=== PATIENT | female | born 1940 | race Caucasian/White ===

== ENCOUNTER 2022-03-17 14:04 | Inpatient (IN) | payer MEDICARE, OTHER ==
[2022-03-17] MEDS ORDERED: Metoclopramide 10 MG/2 ML SDV IVPUSH ONE (14:47)
[2022-03-17] MEDS ORDERED: Dextrose 5%-Lactated Ringers 1,000 ML IV SCH (16:00)
[2022-03-17] MEDS: Potassium Chloride 10 MEQ in Premix Bag 1 BAG IV SCH ×4 (16:27→20:05)
[2022-03-17] MEDS ORDERED: Iopamidol 612 MG/ML 100 ML Bottle IVPUSH ONE (16:56)
[2022-03-17] MEDS ORDERED: Sodium Chloride 0.9% 10 ML Syringe FLUSH ONE (16:56)
[2022-03-17] MEDS ORDERED: Lactated Ringers 1,000 ML IV SCH (18:15)
[2022-03-17] MEDS ORDERED: Ondansetron 4 MG/2 ML SDV IV PRN (19:48)
[2022-03-17] MEDS ORDERED: Acetaminophen 325 MG Tab PO PRN (19:48)
[2022-03-17] MEDS ORDERED: NS + KCl 20mEq/L 1,000 ML IV SCH (20:00)
[2022-03-17] MEDS ORDERED: Apixaban 5 MG Tab PO SCH (21:00)
[2022-03-18] MEDS ORDERED: NS + KCl 20mEq/L 1,000 ML IV SCH (04:00)
[2022-03-18 07:44] LABS: HEMOGLOBIN A1C 6.2 %
[2022-03-18] MEDS ORDERED: Allopurinol 100 MG Tab PO SCH (09:00)
[2022-03-18] MEDS ORDERED: Thyroid 60 MG Tab PO SCH (09:00)
[2022-03-18] MEDS ORDERED: Potassium Chloride 20 MEQ Tab.ER PO SCH (09:00)
[2022-03-18] MEDS ORDERED: Apixaban 2.5 MG Tab PO SCH (09:00)
[2022-03-18] MEDS ORDERED: Pantoprazole 40 MG Tab.CR PO SCH (09:00)
[2022-03-18] MEDS ORDERED: Clopidogrel 75 MG Tab PO SCH (09:00)
[2022-03-18] MEDS ORDERED: Metoprolol Succinate 50 MG Tab.ER PO SCH (09:00)
[2022-03-18] MEDS ORDERED: Losartan 50 MG Tab PO SCH (09:00)
== END 2022-03-18 18:55 | disposition home or self-care (01) | DRG 641 ==
LOC: JD.ED 14:04 → JD.ICU 18:11
PROVIDERS: ADMIT Internal Medicine; ATTEND Internal Medicine
DX: R19.7 Diarrhea, unspecified (principal); R11.2 Nausea with vomiting, unspecified; E87.6 Hypokalemia; Z93.0 Tracheostomy status; E86.9 Volume depletion, unspecified; I48.0 Paroxysmal atrial fibrillation; I11.0 Hypertensive heart disease with heart failure; R73.03 Prediabetes; E86.0 Dehydration; I50.9 Heart failure, unspecified; Z79.02 Long term (current) use of antithrombotics/antiplatelets; E03.9 Hypothyroidism, unspecified; I48.91 Unspecified atrial fibrillation; K21.9 Gastro-esophageal reflux disease without esophagitis; I25.10 Atherosclerotic heart disease of native coronary artery without angina pectoris; R79.82 Elevated C-reactive protein (CRP); R70.0 Elevated erythrocyte sedimentation rate; D47.3 Essential (hemorrhagic) thrombocythemia; Z86.16 Personal history of COVID-19; Z28.9 Immunization not carried out for unspecified reason; Z85.01 Personal history of malignant neoplasm of esophagus; Z79.899 Other long term (current) drug therapy; Z95.5 Presence of coronary angioplasty implant and graft; Z79.01 Long term (current) use of anticoagulants; Z90.49 Acquired absence of other specified parts of digestive tract; I25.2 Old myocardial infarction; Z90.710 Acquired absence of both cervix and uterus; Z87.891 Personal history of nicotine dependence
CPT/HCPCS: 36415; 71045; 74177; 80053; 82009; 83605; 83690; 83735; 83880; 84484; 85025; 85610; 85652; 85730; 86140; 93005; J2765; J3480 ×2; J3490; J7121; Q9967; 80048; 82947; 83036; 84443; 85027; 87040; 93306; 96365; 96375; 97116-GP; 97162-GP; 99285-25; A9270-GY; J3475; J7120

== ENCOUNTER 2022-03-23 10:27 | Inpatient (IN) | payer MEDICARE, OTHER ==
[2022-03-23] MEDS ORDERED: Sodium Chloride 0.9% 10 ML Syringe FLUSH PRN ×2 (10:35→13:44)
[2022-03-23] MEDS ORDERED: Albuterol/Ipratropium 3.0-0.5 MG/3 ML Neb Soln NEB ONE (10:37)
[2022-03-23 11:14] LABS: ESTIMATED GFR 45 mL/min (>60)
[2022-03-23] MEDS ORDERED: Lactated Ringers 1,000 ML IV SCH (11:15)
[2022-03-23] MEDS: Ondansetron 4 MG/2 ML SDV IVPUSH ONE ×2 (11:18→14:03)
[2022-03-23] MEDS ORDERED: Metoclopramide 10 MG/2 ML SDV IVPUSH ONE (11:52)
[2022-03-23] MEDS ORDERED: Furosemide 40 MG/4 ML VIAL IVPUSH ONE (12:22)
[2022-03-23] MEDS ORDERED: Albuterol/Ipratropium 3.0-0.5 MG/3 ML Neb Soln NEB PRN (13:44)
[2022-03-23] MEDS ORDERED: Ondansetron 4 MG Tab.DIS PO PRN (13:44)
[2022-03-23] MEDS ORDERED: LORazepam 2 MG/ML SDV IV ONE (14:00)
[2022-03-23] MEDS ORDERED: Piperacillin/Tazobactam 4.5 GM in Sodium Chloride 0.9% 100 ML IV ONE (14:00)
[2022-03-23] MEDS ORDERED: Pantoprazole 40 MG Vial IV ONE (14:00)
[2022-03-23] MEDS ORDERED: Sodium Chloride 0.9% 10 ML Syringe FLUSH ONE (16:39)
[2022-03-23] MEDS ORDERED: Iopamidol 755 Mg/ML 100 ML Bottle IVPUSH ONE (16:39)
[2022-03-23] MEDS ORDERED: Sodium Chloride 0.9% 100 ML IV SCH (16:45)
[2022-03-23 19:24] LABS: CORONAVIRUS COVID-19 NAA NEGATIVE (NEGATIVE)
[2022-03-23] MEDS ORDERED: Apixaban 5 MG Tab PO SCH (21:00)
[2022-03-23] MEDS: Piperacillin/Tazobactam 4.5 GM in Sodium Chloride 0.9% 100 ML IV SCH (21:28)
[2022-03-24] MEDS ORDERED: Furosemide 40 MG/4 ML VIAL IVPUSH ONE (00:11)
[2022-03-24] MEDS: Piperacillin/Tazobactam 4.5 GM in Sodium Chloride 0.9% 100 ML IV SCH ×3 (05:58→21:02)
[2022-03-24] MEDS: Metoprolol Succinate 25 MG Tab.ER PO SCH (08:41)
[2022-03-24] MEDS: Clopidogrel 75 MG Tab PO SCH (08:41)
[2022-03-24] MEDS: Apixaban 2.5 MG Tab PO SCH ×2 (08:41→20:55)
[2022-03-24] MEDS ORDERED: Albuterol 6.7 GM Inhaler INH PRN ×2 (12:14→12:34)
[2022-03-24] MEDS: guaiFENesin 600 MG Tab.ER PO SCH ×2 (12:46→20:55)
[2022-03-24] MEDS: Albuterol/Ipratropium 3.0-0.5 MG/3 ML Neb Soln NEB SCH ×3 (14:22→21:23)
[2022-03-24] MEDS: Pantoprazole 40 MG Tab.CR PO SCH (15:47)
[2022-03-25] MEDS: Albuterol/Ipratropium 3.0-0.5 MG/3 ML Neb Soln NEB SCH ×4 (01:47→14:47)
[2022-03-25] MEDS: Pantoprazole 40 MG Tab.CR PO SCH (06:00)
[2022-03-25] MEDS: Piperacillin/Tazobactam 4.5 GM in Sodium Chloride 0.9% 100 ML IV SCH (06:00)
[2022-03-25] MEDS: Apixaban 2.5 MG Tab PO SCH (08:02)
[2022-03-25] MEDS: guaiFENesin 600 MG Tab.ER PO SCH (08:02)
[2022-03-25] MEDS: Metoprolol Succinate 25 MG Tab.ER PO SCH (08:02)
[2022-03-25] MEDS: Clopidogrel 75 MG Tab PO SCH (08:02)
== END 2022-03-25 14:45 | disposition home or self-care (01) | DRG 177 ==
LOC: JD.ED 10:29 → JD.ICU 13:14 → UNDOADMIN 13:14 → JD.ICU 13:15 → UNDOADMIN 13:15 → JD.MS 13:15 → JD.ICU 03-24 07:46 → JD.MS 03-24 07:52 → JD.ICU 03-24 15:59
PROVIDERS: ADMIT Pediatrics; ATTEND Hospitalist
DX: J69.0 Pneumonitis due to inhalation of food and vomit (principal); J96.01 Acute respiratory failure with hypoxia; D64.9 Anemia, unspecified; I48.91 Unspecified atrial fibrillation; R11.2 Nausea with vomiting, unspecified; R06.09 Other forms of dyspnea; I25.10 Atherosclerotic heart disease of native coronary artery without angina pectoris; Z93.0 Tracheostomy status; I48.0 Paroxysmal atrial fibrillation; K21.9 Gastro-esophageal reflux disease without esophagitis; N39.3 Stress incontinence (female) (male); Z20.822 Contact with and (suspected) exposure to COVID-19; Z66 Do not resuscitate; E03.9 Hypothyroidism, unspecified; J44.9 Chronic obstructive pulmonary disease, unspecified; Z79.02 Long term (current) use of antithrombotics/antiplatelets; I11.0 Hypertensive heart disease with heart failure; I50.9 Heart failure, unspecified; I25.2 Old myocardial infarction; Z95.5 Presence of coronary angioplasty implant and graft; Z79.890 Hormone replacement therapy; Z79.899 Other long term (current) drug therapy; Z79.52 Long term (current) use of systemic steroids; Z79.01 Long term (current) use of anticoagulants; Z85.01 Personal history of malignant neoplasm of esophagus; Z88.3 Allergy status to other anti-infective agents; Z90.49 Acquired absence of other specified parts of digestive tract; Z90.710 Acquired absence of both cervix and uterus
CPT/HCPCS: 0241U; 36415; 71045; 71250; 71275; 74018; 80048; 80053; 80202; 82947; 83605; 83690; 83735; 83880; 84484; 85025; 85379; 85652; 86140; 87040; 87070; 87077; 87186; 87205; 92610; 93005; 94640; 94761; 97110; 97116; 97162; 97166; 97530; 93010; 99285; A9270-GY; C9113; J1940; J2405; J2543; J2765; J3370; J3490; J7050; J7120; J7620-GY; Q9967

== ENCOUNTER 2023-08-31 13:47 | Emergency (ER) | payer MEDICARE, OTHER ==
[2023-08-31] MEDS ORDERED: Dextrose 5%-0.9% NaCl 1,000 ML IV SCH (14:30)
[2023-08-31 14:49] LABS: BASOPHILS PERCENT AUTO 0.5 % (0.0-1.0); EOSINOPHILS PERCENT AUTO 0.3 % (0.0-6.0); HEMOGLOBIN 12.1 gm/dl (12.0-16.0); IMMATURE GRAN ABSOLUTE AUTO 0.04 K/mm3 (0.00-0.05); IMMATURE GRAN PERCENT AUTO 0.5 % (0.0-0.4); LYMPHOCYTES ABSOLUTE AUTO 0.6 K/mm3 (1.0-4.8); LYMPHOCYTES PERCENT AUTO 8.2 % (24.0-44.0); MEAN CORPUSCULAR HEMOGLOBIN 29.2 pg (28.0-32.0); MEAN CORPUSCULAR HGB CONC 33.6 g/dl (32.0-36.0); MEAN CORPUSCULAR VOLUME 86.7 fl (83.0-99.0); MEAN PLATELET VOLUME 9.1 fl (9.4-12.3); MONOCYTES ABSOLUTE AUTO 0.7 K/mm3 (0.0-0.8); MONOCYTES PERCENT AUTO 9.6 % (0.0-8.0); NEUTROPHILS ABSOLUTE AUTO 6.2 K/mm3 (1.8-7.7); NEUTROPHILS PERCENT AUTO 80.9 % (41.0-71.0); PLATELET COUNT,PLT 252 K/mm3 (150-400); RED BLOOD CELL COUNT 4.15 M/mm3 (4.10-5.30); WHITE BLOOD CELL COUNT,WBC 7.68 K/mm3 (3.9-11.3)
[2023-08-31 15:39] LABS: INR 1.02; PROTHROMBIN TIME 10.9 SECONDS (9.7-12.0)
[2023-08-31 15:43] LABS: A/G RATIO 0.5 (1-2); ALBUMIN 2.6 g/dl (3.4-5.0); ANION GAP 12.7 (5-15); BILIRUBIN TOTAL 1.1 mg/dL (0.2-1.0); BUN/CREATININE RATIO 12.6 (14-18); C-REACTIVE PROTEIN 6.4 mg/dL (<1.0); CALCIUM 8.8 mg/dL (8.5-10.1); CREATININE 2.3 mg/dL (0.55-1.02); EST CRCL DRUG DOSING (CG) 16.28 mL/min; MAGNESIUM 2.1 mg/dL (1.8-2.4); POTASSIUM,K 3.7 mEq/L (3.5-5.1); PROTEIN TOTAL,TP 7.5 g/dl (6.4-8.2)
== END 2023-08-31 17:43 | disposition home or self-care (01) ==
LOC: JD.ED 13:47
DX: N39.0 Urinary tract infection, site not specified (principal); Z93.0 Tracheostomy status; I11.0 Hypertensive heart disease with heart failure; I50.9 Heart failure, unspecified; I25.10 Atherosclerotic heart disease of native coronary artery without angina pectoris; I48.91 Unspecified atrial fibrillation; I25.2 Old myocardial infarction; Z86.73 Personal history of transient ischemic attack (TIA), and cerebral infarction without residual deficits; E03.9 Hypothyroidism, unspecified; Z90.49 Acquired absence of other specified parts of digestive tract; Z90.710 Acquired absence of both cervix and uterus; Z79.899 Other long term (current) drug therapy
CPT/HCPCS: 36415; 71045; 71045-26; 80053; 83735; 83880; 84484; 85025; 85610; 85730; 86140; 93005; 93010; 96360; 96361; 99283; 99284-25; J7042

== ENCOUNTER 2023-09-03 12:12 | Inpatient (IN) | payer MEDICARE, OTHER ==
[2023-09-03 12:32] LABS: BASOPHILS PERCENT AUTO 0.5 % (0.0-1.0); EOSINOPHILS PERCENT AUTO 0.3 % (0.0-6.0); HEMATOCRIT 38.7 % (37.0-47.0); HEMOGLOBIN 13.1 gm/dl (12.0-16.0); IMMATURE GRAN ABSOLUTE AUTO 0.03 K/mm3 (0.00-0.05); IMMATURE GRAN PERCENT AUTO 0.4 % (0.0-0.4); LYMPHOCYTES ABSOLUTE AUTO 0.7 K/mm3 (1.0-4.8); LYMPHOCYTES PERCENT AUTO 9.8 % (24.0-44.0); MEAN CORPUSCULAR HEMOGLOBIN 29.2 pg (28.0-32.0); MEAN CORPUSCULAR HGB CONC 33.9 g/dl (32.0-36.0); MEAN CORPUSCULAR VOLUME 86.4 fl (83.0-99.0); MEAN PLATELET VOLUME 9.2 fl (9.4-12.3); MONOCYTES ABSOLUTE AUTO 0.8 K/mm3 (0.0-0.8); MONOCYTES PERCENT AUTO 10.9 % (0.0-8.0); NEUTROPHILS ABSOLUTE AUTO 5.8 K/mm3 (1.8-7.7); NEUTROPHILS PERCENT AUTO 78.1 % (41.0-71.0); PLATELET COUNT,PLT 275 K/mm3 (150-400); RED BLOOD CELL COUNT 4.48 M/mm3 (4.10-5.30); WHITE BLOOD CELL COUNT,WBC 7.36 K/mm3 (3.9-11.3)
[2023-09-03 12:55] LABS: A/G RATIO 0.6 (1-2); ALBUMIN 2.8 g/dl (3.4-5.0); ANION GAP 15.2 (5-15); BILIRUBIN TOTAL 1.4 mg/dL (0.2-1.0); CALCIUM 9.3 mg/dL (8.5-10.1); CREATININE 2.7 mg/dL (0.55-1.02); EST CRCL DRUG DOSING (CG) 13.87 mL/min; MAGNESIUM 2.4 mg/dL (1.8-2.4); POTASSIUM,K 4.2 mEq/L (3.5-5.1); PROTEIN TOTAL,TP 7.9 g/dl (6.4-8.2)
[2023-09-03] MEDS ORDERED: Lactated Ringers 1,000 ML IV SCH (13:45)
[2023-09-03 13:56] LABS: APPEARANCE,URINE SLT CLOUDY (Clear); BILIRUBIN,URINE 1+ (Negative); COLOR,URINE YELLOW (Yellow); GLUCOSE,URINE NEGATIVE (Negative); KETONES,URINE NEGATIVE (Negative); LEUKOCYTE ESTERASE,URINE NEGATIVE (Negative); NITRITE,URINE NEGATIVE (Negative); OCCULT BLOOD,URINE 1+ (Negative); PROTEIN,URINE 2+ (Negative); UROBILINOGEN,URINE 0.2 (0.2-1.0)
[2023-09-03 14:20] LABS: RBC,URINE 0-5 /hpf (0-5); SQUAMOUS EPITHELIAL CELLS,UR 20-30 /hpf (0-5)
[2023-09-03 14:21] LABS: BACTERIA,URINE MANY /hpf (FEW); FINE GRANULAR CASTS,URINE 0-5 /lpf (0-5); MUCUS,URINE MANY /hpf (FEW)
[2023-09-03] MEDS ORDERED: Acetaminophen 325 MG Tab PO PRN (15:10)
[2023-09-03] MEDS ORDERED: Ondansetron 4 MG/2 ML SDV IV PRN (15:10)
[2023-09-03] MEDS ORDERED: Albuterol/Ipratropium 3.0-0.5 MG/3 ML Neb Soln NEB PRN (15:32)
[2023-09-03] MEDS: cefTRIAXone 2 GM in Sodium Chloride 0.9% 100 ML IV SCH (16:28)
[2023-09-03] MEDS ORDERED: FLU (Fluad Quad) 2023-24(65UP)/MF59C/PF 60 MCG/0.5 ML Syringe IM ONE (17:45)
[2023-09-03] MEDS: Apixaban 2.5 MG Tab PO SCH (20:27)
[2023-09-03] MEDS ORDERED: Cefdinir 300 MG Cap PO SCH (21:00)
[2023-09-03] MEDS ORDERED: guaiFENesin 600 MG Tab.ER PO SCH (21:00)
[2023-09-03] MEDS: guaiFENesin 100 MG/5 ML Soln 10 ML UD Cup PO SCH (21:57)
[2023-09-04] MEDS: guaiFENesin 100 MG/5 ML Soln 10 ML UD Cup PO SCH ×4 (02:51→21:02)
[2023-09-04 05:27] LABS: BASOPHILS PERCENT AUTO 0.5 % (0.0-1.0); EOSINOPHILS PERCENT AUTO 0.7 % (0.0-6.0); HEMATOCRIT 34.3 % (37.0-47.0); IMMATURE GRAN ABSOLUTE AUTO 0.02 K/mm3 (0.00-0.05); IMMATURE GRAN PERCENT AUTO 0.3 % (0.0-0.4); LYMPHOCYTES ABSOLUTE AUTO 0.6 K/mm3 (1.0-4.8); LYMPHOCYTES PERCENT AUTO 10.4 % (24.0-44.0); MEAN CORPUSCULAR HEMOGLOBIN 29.2 pg (28.0-32.0); MEAN CORPUSCULAR HGB CONC 33.8 g/dl (32.0-36.0); MEAN CORPUSCULAR VOLUME 86.4 fl (83.0-99.0); MEAN PLATELET VOLUME 9.3 fl (9.4-12.3); MONOCYTES ABSOLUTE AUTO 0.7 K/mm3 (0.0-0.8); MONOCYTES PERCENT AUTO 12.1 % (0.0-8.0); NEUTROPHILS ABSOLUTE AUTO 4.6 K/mm3 (1.8-7.7); PLATELET COUNT,PLT 247 K/mm3 (150-400); RED BLOOD CELL COUNT 3.97 M/mm3 (4.10-5.30); WHITE BLOOD CELL COUNT,WBC 6.04 K/mm3 (3.9-11.3)
[2023-09-04 05:40] LABS: HEMOGLOBIN 11.6 gm/dl (12.0-16.0)
[2023-09-04 05:56] LABS: ANION GAP 12.4 (5-15); BUN/CREATININE RATIO 15.4 (14-18); C-REACTIVE PROTEIN 7.6 mg/dL (<1.0); CALCIUM 8.4 mg/dL (8.5-10.1); CREATININE 2.4 mg/dL (0.55-1.02); EST CRCL DRUG DOSING (CG) 15.61 mL/min; POTASSIUM,K 3.4 mEq/L (3.5-5.1)
[2023-09-04] MEDS: Lactated Ringers 1,000 ML IV SCH ×2 (06:51→17:33)
[2023-09-04] MEDS: Clopidogrel 75 MG Tab PO SCH (08:02)
[2023-09-04] MEDS: Montelukast 10 MG Tab PO SCH (08:02)
[2023-09-04] MEDS: Ezetimibe 10 MG Tab PO SCH (08:02)
[2023-09-04] MEDS: Pantoprazole 40 MG Tab.CR PO SCH (08:02)
[2023-09-04] MEDS: Apixaban 2.5 MG Tab PO SCH ×2 (08:02→21:03)
[2023-09-04] MEDS: Allopurinol 100 MG Tab PO SCH (08:02)
[2023-09-04] MEDS: Metoprolol Succinate 25 MG Tab.ER PO SCH (08:03)
[2023-09-04] MEDS ORDERED: THYROID PORK 90 MG PO SCH (09:00)
[2023-09-04] MEDS: Thyroid 60 MG Tab PO SCH (11:26)
[2023-09-04] MEDS: cefTRIAXone 2 GM in Sodium Chloride 0.9% 100 ML IV SCH (15:17)
[2023-09-04] MEDS: Docusate Sodium 100 MG Cap PO PRN (17:33)
[2023-09-05] MEDS: Thyroid 60 MG Tab PO SCH (05:21)
[2023-09-05] MEDS: guaiFENesin 100 MG/5 ML Soln 10 ML UD Cup PO SCH ×4 (05:21→20:05)
[2023-09-05 05:30] LABS: BASOPHILS PERCENT AUTO 0.5 % (0.0-1.0); EOSINOPHILS PERCENT AUTO 0.7 % (0.0-6.0); HEMATOCRIT 31.8 % (37.0-47.0); HEMOGLOBIN 10.7 gm/dl (12.0-16.0); IMMATURE GRAN ABSOLUTE AUTO 0.02 K/mm3 (0.00-0.05); IMMATURE GRAN PERCENT AUTO 0.4 % (0.0-0.4); LYMPHOCYTES ABSOLUTE AUTO 0.7 K/mm3 (1.0-4.8); LYMPHOCYTES PERCENT AUTO 12.7 % (24.0-44.0); MEAN CORPUSCULAR HEMOGLOBIN 28.8 pg (28.0-32.0); MEAN CORPUSCULAR HGB CONC 33.6 g/dl (32.0-36.0); MEAN CORPUSCULAR VOLUME 85.7 fl (83.0-99.0); MEAN PLATELET VOLUME 9.3 fl (9.4-12.3); MONOCYTES ABSOLUTE AUTO 0.6 K/mm3 (0.0-0.8); MONOCYTES PERCENT AUTO 11.1 % (0.0-8.0); NEUTROPHILS ABSOLUTE AUTO 4.2 K/mm3 (1.8-7.7); NEUTROPHILS PERCENT AUTO 74.6 % (41.0-71.0); PLATELET COUNT,PLT 247 K/mm3 (150-400); RED BLOOD CELL COUNT 3.71 M/mm3 (4.10-5.30); WHITE BLOOD CELL COUNT,WBC 5.59 K/mm3 (3.9-11.3)
[2023-09-05 05:49] LABS: ANION GAP 12.4 (5-15); BUN/CREATININE RATIO 18.4 (14-18); C-REACTIVE PROTEIN 4.9 mg/dL (<1.0); CALCIUM 8.6 mg/dL (8.5-10.1); CREATININE 1.9 mg/dL (0.55-1.02); EST CRCL DRUG DOSING (CG) 19.71 mL/min; MAGNESIUM 2.1 mg/dL (1.8-2.4); POTASSIUM,K 3.4 mEq/L (3.5-5.1)
[2023-09-05] MEDS: Clopidogrel 75 MG Tab PO SCH (08:35)
[2023-09-05] MEDS: Montelukast 10 MG Tab PO SCH (08:35)
[2023-09-05] MEDS: Apixaban 2.5 MG Tab PO SCH ×2 (08:35→20:05)
[2023-09-05] MEDS: Metoprolol Succinate 25 MG Tab.ER PO SCH (08:36)
[2023-09-05] MEDS: Allopurinol 100 MG Tab PO SCH (08:36)
[2023-09-05] MEDS: Ezetimibe 10 MG Tab PO SCH (08:36)
[2023-09-05] MEDS: Pantoprazole 40 MG Tab.CR PO SCH (08:36)
[2023-09-05] MEDS ORDERED: Aluminum Hydroxide/Magnesium Hydroxide/Simethicone Susp 30 ML Cup PO PRN (19:42)
[2023-09-05] MEDS: Docusate Sodium 100 MG Cap PO PRN (20:05)
[2023-09-06] MEDS: guaiFENesin 100 MG/5 ML Soln 10 ML UD Cup PO SCH ×4 (04:07→21:13)
[2023-09-06] MEDS: Thyroid 60 MG Tab PO SCH ×2 (04:21→06:09)
[2023-09-06 05:30] LABS: BASOPHILS PERCENT AUTO 0.6 % (0.0-1.0); EOSINOPHILS ABSOLUTE AUTO 0.1 K/mm3 (0.0-0.4); EOSINOPHILS PERCENT AUTO 1.3 % (0.0-6.0); HEMATOCRIT 31.6 % (37.0-47.0); HEMOGLOBIN 10.7 gm/dl (12.0-16.0); IMMATURE GRAN ABSOLUTE AUTO 0.03 K/mm3 (0.00-0.05); IMMATURE GRAN PERCENT AUTO 0.6 % (0.0-0.4); LYMPHOCYTES ABSOLUTE AUTO 0.8 K/mm3 (1.0-4.8); MEAN CORPUSCULAR HEMOGLOBIN 28.8 pg (28.0-32.0); MEAN CORPUSCULAR HGB CONC 33.9 g/dl (32.0-36.0); MEAN CORPUSCULAR VOLUME 85.2 fl (83.0-99.0); MEAN PLATELET VOLUME 9.4 fl (9.4-12.3); MONOCYTES ABSOLUTE AUTO 0.6 K/mm3 (0.0-0.8); MONOCYTES PERCENT AUTO 11.3 % (0.0-8.0); NEUTROPHILS ABSOLUTE AUTO 3.9 K/mm3 (1.8-7.7); NEUTROPHILS PERCENT AUTO 71.2 % (41.0-71.0); PLATELET COUNT,PLT 257 K/mm3 (150-400); RED BLOOD CELL COUNT 3.71 M/mm3 (4.10-5.30); WHITE BLOOD CELL COUNT,WBC 5.41 K/mm3 (3.9-11.3)
[2023-09-06 05:51] LABS: ANION GAP 12.5 (5-15); BUN/CREATININE RATIO 19.3 (14-18); C-REACTIVE PROTEIN 3.6 mg/dL (<1.0); CALCIUM 8.4 mg/dL (8.5-10.1); CREATININE 1.5 mg/dL (0.55-1.02); EST CRCL DRUG DOSING (CG) 24.97 mL/min; MAGNESIUM 2.2 mg/dL (1.8-2.4); POTASSIUM,K 3.5 mEq/L (3.5-5.1)
[2023-09-06] MEDS ORDERED: Magnesium Hydroxide 400 MG/5 ML Susp 30 ML Cup PO ONE (06:06)
[2023-09-06] MEDS: Metoprolol Succinate 25 MG Tab.ER PO SCH (08:34)
[2023-09-06] MEDS: Allopurinol 100 MG Tab PO SCH (08:35)
[2023-09-06] MEDS: Montelukast 10 MG Tab PO SCH (08:35)
[2023-09-06] MEDS: Pantoprazole 40 MG Tab.CR PO SCH (08:35)
[2023-09-06] MEDS: Apixaban 2.5 MG Tab PO SCH ×2 (08:35→21:12)
[2023-09-06] MEDS: Clopidogrel 75 MG Tab PO SCH (08:35)
[2023-09-06] MEDS: Ezetimibe 10 MG Tab PO SCH (08:35)
[2023-09-06] MEDS: Potassium Chloride 20 MEQ Tab.ER PO SCH ×2 (16:10→21:12)
[2023-09-06] MEDS: Docusate Sodium 100 MG Cap PO PRN (21:12)
[2023-09-07] MEDS: guaiFENesin 100 MG/5 ML Soln 10 ML UD Cup PO SCH ×4 (02:19→20:08)
[2023-09-07 06:02] LABS: BASOPHILS PERCENT AUTO 0.7 % (0.0-1.0); EOSINOPHILS ABSOLUTE AUTO 0.1 K/mm3 (0.0-0.4); EOSINOPHILS PERCENT AUTO 1.9 % (0.0-6.0); HEMATOCRIT 31.4 % (37.0-47.0); HEMOGLOBIN 10.6 gm/dl (12.0-16.0); IMMATURE GRAN ABSOLUTE AUTO 0.04 K/mm3 (0.00-0.05); IMMATURE GRAN PERCENT AUTO 0.7 % (0.0-0.4); LYMPHOCYTES ABSOLUTE AUTO 0.9 K/mm3 (1.0-4.8); MEAN CORPUSCULAR HEMOGLOBIN 28.8 pg (28.0-32.0); MEAN CORPUSCULAR HGB CONC 33.8 g/dl (32.0-36.0); MEAN CORPUSCULAR VOLUME 85.3 fl (83.0-99.0); MEAN PLATELET VOLUME 9.1 fl (9.4-12.3); MONOCYTES ABSOLUTE AUTO 0.6 K/mm3 (0.0-0.8); MONOCYTES PERCENT AUTO 10.8 % (0.0-8.0); NEUTROPHILS ABSOLUTE AUTO 4.1 K/mm3 (1.8-7.7); NEUTROPHILS PERCENT AUTO 70.9 % (41.0-71.0); PLATELET COUNT,PLT 272 K/mm3 (150-400); RED BLOOD CELL COUNT 3.68 M/mm3 (4.10-5.30); WHITE BLOOD CELL COUNT,WBC 5.81 K/mm3 (3.9-11.3)
[2023-09-07 06:26] LABS: ANION GAP 11.3 (5-15); C-REACTIVE PROTEIN 3.1 mg/dL (<1.0); CALCIUM 8.7 mg/dL (8.5-10.1); CREATININE 1.4 mg/dL (0.55-1.02); EST CRCL DRUG DOSING (CG) 26.75 mL/min; MAGNESIUM 2.2 mg/dL (1.8-2.4); POTASSIUM,K 4.3 mEq/L (3.5-5.1)
[2023-09-07] MEDS: Thyroid 60 MG Tab PO SCH (06:34)
[2023-09-07] MEDS: Ezetimibe 10 MG Tab PO SCH (08:23)
[2023-09-07] MEDS: Apixaban 2.5 MG Tab PO SCH ×2 (08:23→20:08)
[2023-09-07] MEDS: Docusate Sodium 100 MG Cap PO PRN (08:23)
[2023-09-07] MEDS: Allopurinol 100 MG Tab PO SCH (08:23)
[2023-09-07] MEDS: Pantoprazole 40 MG Tab.CR PO SCH (08:24)
[2023-09-07] MEDS: Montelukast 10 MG Tab PO SCH (08:24)
[2023-09-07] MEDS: Metoprolol Succinate 25 MG Tab.ER PO SCH (08:24)
[2023-09-07] MEDS: Clopidogrel 75 MG Tab PO SCH (08:24)
[2023-09-07] MEDS ORDERED: Polyethylene Glycol 3350 Powder 17 GM Packet PO ONE (09:15)
[2023-09-07] MEDS: Polyethylene Glycol 3350 Powder 17 GM Packet PO SCH (09:18)
[2023-09-08] MEDS: guaiFENesin 100 MG/5 ML Soln 10 ML UD Cup PO SCH ×4 (02:07→20:58)
[2023-09-08] MEDS: Thyroid 60 MG Tab PO SCH (05:47)
[2023-09-08] MEDS: Ezetimibe 10 MG Tab PO SCH (09:07)
[2023-09-08] MEDS: Montelukast 10 MG Tab PO SCH (09:08)
[2023-09-08] MEDS: Metoprolol Succinate 25 MG Tab.ER PO SCH (09:08)
[2023-09-08] MEDS: Clopidogrel 75 MG Tab PO SCH (09:08)
[2023-09-08] MEDS: Pantoprazole 40 MG Tab.CR PO SCH (09:09)
[2023-09-08] MEDS: Apixaban 2.5 MG Tab PO SCH ×2 (09:09→20:58)
[2023-09-08] MEDS: Furosemide 20 MG Tab PO SCH (09:09)
[2023-09-08] MEDS: Allopurinol 100 MG Tab PO SCH (09:09)
[2023-09-08] MEDS: Polyethylene Glycol 3350 Powder 17 GM Packet PO SCH (09:09)
[2023-09-09] MEDS: guaiFENesin 100 MG/5 ML Soln 10 ML UD Cup PO SCH ×4 (04:14→20:23)
[2023-09-09] MEDS: Thyroid 60 MG Tab PO SCH (06:07)
[2023-09-09] MEDS: Metoprolol Succinate 25 MG Tab.ER PO SCH (08:44)
[2023-09-09] MEDS: Ezetimibe 10 MG Tab PO SCH (08:45)
[2023-09-09] MEDS: Furosemide 20 MG Tab PO SCH (08:45)
[2023-09-09] MEDS: Montelukast 10 MG Tab PO SCH (08:45)
[2023-09-09] MEDS: Pantoprazole 40 MG Tab.CR PO SCH (08:45)
[2023-09-09] MEDS: Apixaban 2.5 MG Tab PO SCH ×2 (08:45→20:23)
[2023-09-09] MEDS: Allopurinol 100 MG Tab PO SCH (08:45)
[2023-09-09] MEDS: Clopidogrel 75 MG Tab PO SCH (08:45)
[2023-09-09] MEDS: Polyethylene Glycol 3350 Powder 17 GM Packet PO SCH (08:45)
[2023-09-09 17:15] LABS: CORONAVIRUS COVID-19 NAA POSITIVE (NEGATIVE); INFLUENZA A NAA NEGATIVE (NEGATIVE); RESPIRATORY SYNCYTIAL VIR NAA NEGATIVE (NEGATIVE)
[2023-09-10] MEDS: guaiFENesin 100 MG/5 ML Soln 10 ML UD Cup PO SCH ×2 (04:22→09:05)
[2023-09-10] MEDS: Thyroid 60 MG Tab PO SCH (05:55)
[2023-09-10] MEDS ORDERED: Losartan 50 MG Tab PO SCH (09:00)
[2023-09-10] MEDS: Ezetimibe 10 MG Tab PO SCH (09:03)
[2023-09-10] MEDS: Polyethylene Glycol 3350 Powder 17 GM Packet PO SCH (09:03)
[2023-09-10] MEDS: Montelukast 10 MG Tab PO SCH (09:03)
[2023-09-10] MEDS: Pantoprazole 40 MG Tab.CR PO SCH (09:03)
[2023-09-10] MEDS: Clopidogrel 75 MG Tab PO SCH (09:03)
[2023-09-10] MEDS: Allopurinol 100 MG Tab PO SCH (09:03)
[2023-09-10] MEDS: Apixaban 2.5 MG Tab PO SCH (09:03)
[2023-09-10] MEDS: Furosemide 20 MG Tab PO SCH (09:03)
[2023-09-10] MEDS: Metoprolol Succinate 25 MG Tab.ER PO SCH (09:03)
== END 2023-09-10 10:45 | DRG 682 ==
LOC: JD.ED 12:12 → JD.MS 14:15
PROVIDERS: ADMIT Internal Medicine; ATTEND Internal Medicine
DX: N17.9 Acute kidney failure, unspecified (principal); U07.1 COVID-19; E46 Unspecified protein-calorie malnutrition; N39.0 Urinary tract infection, site not specified; M54.2 Cervicalgia; Z66 Do not resuscitate; S40.012A Contusion of left shoulder, initial encounter; H91.90 Unspecified hearing loss, unspecified ear; S70.02XA Contusion of left hip, initial encounter; R62.7 Adult failure to thrive; I48.91 Unspecified atrial fibrillation; I25.10 Atherosclerotic heart disease of native coronary artery without angina pectoris; M19.90 Unspecified osteoarthritis, unspecified site; M54.9 Dorsalgia, unspecified; G89.29 Other chronic pain; F41.9 Anxiety disorder, unspecified; I11.0 Hypertensive heart disease with heart failure; I50.9 Heart failure, unspecified; I25.2 Old myocardial infarction; J44.9 Chronic obstructive pulmonary disease, unspecified; R29.6 Repeated falls; F32.89 Other specified depressive episodes; F41.0 Panic disorder [episodic paroxysmal anxiety]; E86.9 Volume depletion, unspecified; I48.0 Paroxysmal atrial fibrillation; R13.10 Dysphagia, unspecified; K21.9 Gastro-esophageal reflux disease without esophagitis; R55 Syncope and collapse; R91.1 Solitary pulmonary nodule; Z90.49 Acquired absence of other specified parts of digestive tract; Z90.710 Acquired absence of both cervix and uterus; Z86.73 Personal history of transient ischemic attack (TIA), and cerebral infarction without residual deficits; Z68.23 Body mass index [BMI] 23.0-23.9, adult; E03.9 Hypothyroidism, unspecified; Z79.899 Other long term (current) drug therapy; Z79.02 Long term (current) use of antithrombotics/antiplatelets; Z79.01 Long term (current) use of anticoagulants; Z95.5 Presence of coronary angioplasty implant and graft; Z93.0 Tracheostomy status; Z85.850 Personal history of malignant neoplasm of thyroid; Z85.01 Personal history of malignant neoplasm of esophagus; Z86.718 Personal history of other venous thrombosis and embolism; Z87.440 Personal history of urinary (tract) infections; W18.30XA Fall on same level, unspecified, initial encounter
CPT/HCPCS: 0241U; 36415; 70450; 71250; 72125; 73030; 73502; 80048; 80053; 81001; 83735; 84145; 85025; 86140; 87086; 94668; 94760; 94761; 97110; 97116; 97162; 99285; 31500; A9270-GY; C1758; J0696; J3490; J7120

== ENCOUNTER 2023-10-13 10:37 | Emergency (ER) | payer MEDICARE, OTHER ==
[2023-10-13] MEDS: Sodium Chloride 0.9% 1,000 ML IV STA (11:53)
[2023-10-13] MEDS: Sodium Chloride 0.9% 10 ML Syringe FLUSH PRN (11:53)
[2023-10-13 12:06] LABS: BASOPHILS PERCENT AUTO 0.4 % (0.0-1.0); EOSINOPHILS ABSOLUTE AUTO 0.4 K/mm3 (0.0-0.4); EOSINOPHILS PERCENT AUTO 5.1 % (0.0-6.0); IMMATURE GRAN ABSOLUTE AUTO 0.02 K/mm3 (0.00-0.05); IMMATURE GRAN PERCENT AUTO 0.3 % (0.0-0.4); LYMPHOCYTES ABSOLUTE AUTO 1.2 K/mm3 (1.0-4.8); LYMPHOCYTES PERCENT AUTO 18.1 % (24.0-44.0); MEAN CORPUSCULAR HEMOGLOBIN 29.3 pg (28.0-32.0); MEAN CORPUSCULAR HGB CONC 33.2 g/dl (32.0-36.0); MEAN CORPUSCULAR VOLUME 88.1 fl (83.0-99.0); MEAN PLATELET VOLUME 10.1 fl (9.4-12.3); MONOCYTES ABSOLUTE AUTO 0.5 K/mm3 (0.0-0.8); MONOCYTES PERCENT AUTO 7.8 % (0.0-8.0); NEUTROPHILS ABSOLUTE AUTO 4.6 K/mm3 (1.8-7.7); NEUTROPHILS PERCENT AUTO 68.3 % (41.0-71.0); PLATELET COUNT,PLT 219 K/mm3 (150-400)
[2023-10-13 12:07] LABS: HEMOGLOBIN 12.3 gm/dl (12.0-16.0)
[2023-10-13 12:26] LABS: A/G RATIO 0.9 (1-2); ALANINE AMINOTRANSFERASE,ALT 33 U/L (14-59); ALBUMIN 3.6 g/dl (3.4-5.0); ALKALINE PHOSPHATASE 121 U/L (46-116); ANION GAP 17.9 (5-15); ASPARTATE AMNIOTRANSFERASE,AST 30 U/L (15-37); BILIRUBIN TOTAL 1.1 mg/dL (0.2-1.0); BLOOD UREA NITROGEN,BUN 57 mg/dL (7-18); BUN/CREATININE RATIO 24.8 (14-18); C-REACTIVE PROTEIN <0.2 mg/dL (<1.0); CALCIUM 9.2 mg/dL (8.5-10.1); CARBON DIOXIDE,CO2 24 mEq/L (21-32); CHLORIDE,CL 99 mEq/L (98-107); CREATININE 2.3 mg/dL (0.55-1.02); ESTIMATED GFR 21 mL/min (>60); GLUCOSE RANDOM 110 mg/dL (70-99); POTASSIUM,K 3.9 mEq/L (3.5-5.1); PROTEIN TOTAL,TP 7.7 g/dl (6.4-8.2); SODIUM,NA 137 mEq/L (136-145)
[2023-10-13] MEDS ORDERED: Sodium Chloride 0.9% 500 ML IV STA (12:43)
[2023-10-13 13:02] LABS: APPEARANCE,URINE CLEAR (Clear); BILIRUBIN,URINE NEGATIVE (Negative); COLOR,URINE YELLOW (Yellow); GLUCOSE,URINE NEGATIVE (Negative); KETONES,URINE NEGATIVE (Negative); LEUKOCYTE ESTERASE,URINE NEGATIVE (Negative); NITRITE,URINE NEGATIVE (Negative); OCCULT BLOOD,URINE TRACE-INTACT (Negative); PH,URINE 6.5 (5.0-8.0); PROTEIN,URINE 1+ (Negative); UROBILINOGEN,URINE 0.2 (0.2-1.0)
[2023-10-13 13:13] LABS: BACTERIA,URINE FEW /hpf (FEW); EPITHELIAL CELLS,URINE 0-5 /hpf (0-5); HYALINE CASTS,URINE 0-5 /lpf (0-5); MUCUS,URINE FEW /hpf (FEW); WBC,URINE 0-5 /hpf (0-5)
== END 2023-10-13 13:55 | disposition home or self-care (01) ==
LOC: JD.ED 10:37
DX: R42 Dizziness and giddiness (principal); I95.1 Orthostatic hypotension; I13.0 Hypertensive heart and chronic kidney disease with heart failure and stage 1 through stage 4 chronic kidney disease, or unspecified chronic kidney disease; N18.9 Chronic kidney disease, unspecified; I50.9 Heart failure, unspecified; K21.9 Gastro-esophageal reflux disease without esophagitis; I25.10 Atherosclerotic heart disease of native coronary artery without angina pectoris; E03.9 Hypothyroidism, unspecified; Z79.899 Other long term (current) drug therapy
CPT/HCPCS: 36415; 70450; 80053; 81001; 85025; 86140; 93005; 93246; 96360; 96361; 99284; J3490; J7030; 93010; 99283